=== PATIENT | male | born 1955 | race African-American/Black ===

== ENCOUNTER 2017-05-30 00:20 | Emergency (ER) | payer BC | END 2017-05-30 00:39 | disposition left against medical advice (07) | LOC: JER 00:20 | DX: Z53.21 Procedure and treatment not carried out due to patient leaving prior to being seen by health care provider (principal) | CPT/HCPCS: 99281-25 ==

== ENCOUNTER 2018-08-18 19:53 | Emergency (ER) | payer BC ==
[2018-08-18 20:14] VITALS: BP 166/97; PULSE 73; TEMP 97.8; BMI 32.3
[2018-08-18] MEDS ORDERED: SILVER NITRATE 75% APPLIC STCK 1 PKT EACH ONE ×3 (20:32→20:56)
[2018-08-18] MEDS ORDERED: LIDOCAINE 2.5%/PRILOCAINE 2.5% (5 Gram/TUBE) TP ONE ×2 (20:32→22:19)
[2018-08-18] MEDS ORDERED: DIPHTH,PERTUSS(ACELL),TET 0.5 ML DISP.SYRIN IM ONE ×2 (21:31→21:32)
--- NOTE | 2018-08-18 21:31 | PDOC ---
History of Present Illness - General Chief Complaint: Injury Stated Complaint: FALL Time Seen by Provider: 08/18/18 20:19 History Source: Patient Exam Limitations: Clinical Condition - History of Present Illness Initial Comments: 08/18/18 21:26 Patient with no significant past medical history present with complaint of laceration to fingernail soft left middle and ring finger status post slip and fall on the finger scraping fingernail on the concrete floor this evening. Patient does not recall last tetanus vaccine. Timing/Duration: 1-3 hours Past History - Past Medical History Allergies/Adverse Reactions: Allergies Allergy/AdvReac Type Severity Reaction Status Date / Time No Known Allergies Allergy Verified 08/18/18 20:14 Home Medications: Ambulatory Orders Ibuprofen 800 mg PO Q8H PRN #20 tablet 08/18/18 Sulfamethoxazole/Trimethoprim [Bactrim Ds Tablet] 1 each PO BID 5 Days #10 tablet 08/18/18 COPD: No - Suicide/Smoking/Psychosocial Hx Smoking History: Former smoker Have you smoked in the past 12 months: No If you are a former smoker, when did you quit?: 45 years ago Information on smoking cessation initiated: No Hx Alcohol Use: No Drug/Substance Use Hx: No Review of Systems - Review of Systems Able to Perform ROS?: Yes Is the patient limited Tristanian proficient: No Constitutional: No: Weakness HEENTM: No: Symptoms Reported Respiratory: No: Symptoms reported Cardiac (ROS): No: Symptoms Reported ABD/GI: No: Symptoms Reported Musculoskeletal: Yes: Muscle Pain (fingertip of left middle and ring finger) Integumentary: Yes: Other (laceration to fingernail of left middle and ring finger) Neurological: No: Numbness, Paresthesia, Tingling, Dizziness All Other Systems: Reviewed and Negative *Physical Exam - Vital Signs Last Vital Signs Temp Pulse Resp BP Pulse Ox 97.8 F 73 18 166/97 100 08/18/18 20:06 08/18/18 20:06 08/18/18 20:06 08/18/18 20:06 08/18/18 20:06 - Physical Exam Comments: 08/18/18 21:28 GENERAL: Well developed, well nourished. Awake and alert. No acute distress. CARDIOVASCULAR: Regular rate and rhythm. No murmurs, rubs, or gallops. PULMONARY: No evidence of respiratory distress. Lungs clear to auscultation bilaterally. No wheezing, rales or rhonchi. ABDOMINAL: Soft. Non-tender. Non-distended. No rebound or guarding. No organomegaly. Normoactive bowel sounds EXTREMITIES: complete partial fingernail avulsion to left middle and ring finger with moderate bleeding. NEUROLOGICAL: Alert, awake, appropriate. No motor deficits in the lower extremities. Gait is normal without ataxia. PSYCHIATRIC: Cooperative. Good eye contact. Appropriate mood and affect. General Appearance: Yes: Nourished, Appropriately Dressed. No: Apparent Distress Moderate Sedation - Procedure Monitoring Vital Signs: Procedure Monitoring Vital Signs Temperature 97.8 F 08/18/18 20:06 Pulse Rate 73 08/18/18 20:06 Respiratory Rate 18 08/18/18 20:06 Blood Pressure 166/97 08/18/18 20:06 O2 Sat by Pulse Oximetry (%) 100 08/18/18 20:06 ED Treatment Course - RADIOLOGY Radiology Studies Ordered: Category Date Time Status FINGER(S) LEFT [RAD] Stat Radiology 08/18/18 21:10 Ordered HAND- LEFT [RAD] Stat Radiology 08/18/18 21:09 Ordered Medical Decision Making - Medical Decision Making 08/18/18 21:29 She with no significant past medication he present with complaint of pain and laceration to fingernail of left middle and ring finger status post slip and fall on to fingers scraping fingernail on concrete floor. Patient denies hitting head to during fall. Exam significant for partial fingernail avulsion laceration to left middle and ring finger with moderate bleeding. Wound cleaned with Betadine and cauterized with silver nitrate. Bleeding stopped with silver nitrate. Bacitracin applied to wound. X-ray of left fingers ordered to rule out fracture from fall. 08/18/18 22:17 X-ray shows no acute fracture. Middle and left ring finger place and finger splint to help protect fingers. Patient stable for discharge. *DC/Admit/Observation/Transfer Diagnosis at time of Disposition: Laceration of left middle finger with damage to nail Qualifiers: Encounter type: initial encounter Foreign body presence: without foreign body Qualified Code(s): S61.313A - Laceration without foreign body of left middle finger with damage to nail, initial encounter Laceration of left ring finger with damage to nail Qualifiers: Encounter type: initial encounter Foreign body presence: without foreign body Qualified Code(s): S61.315A - Laceration without foreign body of left ring finger with damage to nail, initial encounter - Discharge Dispostion Disposition: HOME Condition at time of disposition: Stable Decision to Admit order: No - Prescriptions Prescriptions: Ibuprofen 800 mg PO Q8H PRN #20 tablet PRN Reason: pain Sulfamethoxazole/Trimethoprim [Bactrim Ds Tablet] 1 each PO BID 5 Days #10 tablet - Referrals Referrals: Jadiel Espinoza MD [Primary Care Provider] - - Patient Instructions Additional Instructions: Keep applied splints on for a week. Take prescribed Motrin as needed for pain. Apply Neosporin or bacitracin to wound twice a day after removing splint. Follow -up referred orthopedics as needed if persistent finger pain after 4 days. - Post Discharge Activity
[2018-08-18] MEDS ORDERED: SILVER NITRATE 75% APPLIC STCK 1 PKT EACH TP ONE ×2 (22:19→22:47)
== END 2018-08-18 22:48 | disposition home or self-care (01) ==
LOC: JERFT 19:53
PROC: 3E0234Z Introduction of Serum, Toxoid and Vaccine into Muscle, Percutaneous Approach (ICD-10-PCS; principal; 2018-08-18)
PROC: 2W3KX1Z Immobilization of Left Finger using Splint (ICD-10-PCS; 2018-08-18)
DX: S61.313A Laceration without foreign body of left middle finger with damage to nail, initial encounter (principal); S61.315A Laceration without foreign body of left ring finger with damage to nail, initial encounter; W01.198A Fall on same level from slipping, tripping and stumbling with subsequent striking against other object, initial encounter; Y93.89 Activity, other specified; Y92.89 Other specified places as the place of occurrence of the external cause; Y99.8 Other external cause status
CPT/HCPCS: 73130-TC-LT-FY; 73140-TC-LT-FY; 90715; 99281-25

== ENCOUNTER 2021-02-22 21:19 | Emergency (ER) | payer BC ==
[2021-02-22 21:49] VITALS: BP 168/83; PULSE 77; TEMP 98.2; BMI 34.5
[2021-02-22] MEDS ORDERED: diazePAM 5 MG TABLET PO ONE (22:08)
[2021-02-22] MEDS ORDERED: KETOROLAC TROMETHAMINE 30 MG/1 ML VIAL IM ONE (22:08)
[2021-02-22] MEDS ORDERED: DEXAMETHASONE 4 MG TABLET (FP) PO ONE (22:15)
[2021-02-22] MEDS ORDERED: KETOROLAC TROMETHAMINE 30 MG/1 ML VIAL ONE (22:36)
[2021-02-22] MEDS ORDERED: DEXAMETHASONE 4 MG TABLET (FP) ONE (22:36)
[2021-02-22] MEDS ORDERED: diazePAM 5 MG TABLET ONE (22:36)
[2021-02-22 22:53] LABS: PH,URINE 5.5 (5.0-8.0); URINE APPEARANCE CLEAR; URINE BILIRUBIN NEGATIVE (NEGATIVE); URINE COLOR YELLOW; URINE GLUCOSE (UA) NEGATIVE (NEGATIVE); URINE KETONE NEGATIVE (NEGATIVE); URINE LEUK ESTERASE NEGATIVE (NEGATIVE); URINE NITRITE NEGATIVE (NEGATIVE); URINE PROTEIN NEGATIVE (NEGATIVE)
== END 2021-02-23 01:50 | disposition home or self-care (01) ==
LOC: JER 21:19
PROC: 3E023GC Introduction of Other Therapeutic Substance into Muscle, Percutaneous Approach (ICD-10-PCS; principal; 2021-02-22)
DX: M54.89 Other dorsalgia (principal); R10.9 Unspecified abdominal pain
CPT/HCPCS: 74176-TC; 81003; 99284-25

== ENCOUNTER 2021-10-28 12:27 | Emergency (ER) | payer BC ==
[2021-10-28 12:36] VITALS: TEMP 98.4; BMI 32.3
[2021-10-28 14:02] LABS: BILIRUBIN,TOTAL 0.8 mg/dl (0.2-1); CALCIUM 8.9 mg/dl (8.5-10); CREATININE 1.2 mg/dl (0.55-1.3)
[2021-10-28 15:43] LABS: BASO % 0.3 % (0-2.0); EOS % 1.3 % (0-4.5); HEMATOCRIT 44.4 % (35.4-49); LYMPH % 37.4 % (8-40); MCH 30.6 pg (25.7-33.7); MCHC 33.7 g/dl (32.0-35.9); MEAN CELL VOLUME 90.9 fl (80-96); MEAN PLT VOLUME 8.4 fl (7.5-11.1); MONO % 13.6 % (3.8-10.2); NEUT % 47.4 % (42.8-82.8); PLATELET COUNT 215 10^3/uL (134-434); RBC 4.89 M/mm3 (4.00-5.60); RDW 13.8 % (11.9-15.9); WHITE BLOOD COUNT 6.1 K/mm3 (4.0-10.0)
[2021-10-28 16:33] VITALS: BP 136/80; PULSE 78
== END 2021-10-28 16:30 | disposition home or self-care (01) ==
LOC: FER 12:27
DX: R07.9 Chest pain, unspecified (principal); R07.82 Intercostal pain
CPT/HCPCS: 36415; 71046-TC-FY; 80053; 81003; 84484; 85025; 85379; 93005; 99285-25